=== PATIENT | female | born 1945 ===

== ENCOUNTER 2024-09-18 07:49 | Inpatient (IN) ==
--- NOTE | 2024-09-17 09:07 | Anesthesiology Consultation ---
Date of Service September 17, 2024 Assessment & Plan (1) Encounter for pre-operative examination: - Infectious disease screening: Per assessment on 09/11/24- No known recent infectious disease contacts or current infectious disease symptoms. - Neurology visit (06/21/24): "78-year-old female with signs and symptoms consistent with a right hemispheric ischemic infarct, she has a left hemiparesis, face arm and leg, mild. Recent brain MRI reveals an ischemic infarct within the right temporal lobe. I will need to review the actual images to determine the extent of this infarct and look for evidence of other chronic ischemic injury. I have also recommended CT angiography of the head and neck, echocardiography, and mobile cardiac outpatient telemetry. Patient will start aspirin 81 mg/day for secondary stroke risk reduction, she will continue with pravastatin and continue to follow with her PCP for ongoing management of hyperlipidemia and other cardiovascular risk factors.. I would also recommend a trial of a low-dose of carbidopa levodopa to address an element of vascular parkinsonism, she has a shuffling gait, poor movement initiation. However, I do not suspect classic idiopathic Parkinson's disease at this time. 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 Head CTA 08/01/24 showed " 1.9 cm lytic focus within the inner table of the left frontal bone with associated extra-axial soft tissue density. This is pathologically indeterminate and a neoplastic process such as myeloma or metastatic disease cannot be excluded. A benign etiology is also within the differential." Neck CTA with significant Left ICA stenosis (reason for upcoming surgery). > Case (including Echo/head CTA findings) reviewed with Dr. Zaidi. Nothing further needed preoperatively from his perspective for given surgery. - Preop testing: No preop testing received at current time of review. Per email from Laura with surgeon's office, aware preop testing not obtained and request being done DOS. Order placed for surgeon-ordered DOS labs, EKG, CXR. Chart Review Chart Review: Acceptable Risk for Surgery (pending preop labs, EKG, CXR DOS) and Patient NOT seen in Pre Admission Testing History Surgery Operation Date: 09/18/24 12:00 Proposed Procedures p Left Transcarotid Artery Revascularization - Charles Peralta MD Height/Weight Height: 5 ft 3 in Weight: 72.575 kg Allergies Allergy/AdvReac Type Severity Reaction Status Date / Time No Known Drug Allergies Allergy Unknown Verified 09/11/24 09:42 Medications Home Medications Medication Instructions Recorded Confirmed Last Taken pravastatin 10 mg tablet 10 mg PO QPM 06/13/24 09/11/24 Unknown carbidopa 25 mg-levodopa 100 mg 0.5 tab PO TID #90 tabs 06/21/24 09/11/24 Unknown tablet aspirin 81 mg tablet,delayed 81 mg PO QAM 09/11/24 09/11/24 Unknown release (Adult Aspirin Regimen) cholecalciferol (vitamin D3) 50 50 mcg PO QAM 09/11/24 09/11/24 Unknown mcg (2,000 unit) capsule (Vitamin D3) clopidogrel 75 mg tablet (Plavix) 75 mg PO QAM 09/11/24 09/11/24 Unknown Past Medical History Medical History Carotid stenosis CTA neck 08/01/24: Prominent atherosclerotic plaque of the left carotid bulb results in approximately 80% stenosis of the left ICA. Severe calcified plaque within the right carotid bulb causes severe stenosis at the origin of the right external carotid artery and approximately 60% stenosis at the origin of the right ICA. Hyperlipidemia Osteoarthritis PFO (patent foramen ovale) per patient, no current issues. Echo 07/11/24: positive bubble study for interatrial shunt most consistent with PFO. Raynauds disease Stroke Per [facility] [place] neuro visit, 02/27/2024 Brain MRI "revealed a likely arachnoid g ranulation along the left frontal lobe, no enhancing mass or mass effect. There was a small area of encephalomalacia and gliosis involving the anterior right temporal lobe likely consistent with a remote injury or stroke." Unsteady gait Per [facility] neuro 06/2024 visit, added carbidopa-levadopa to address element of vascular parkinsonism ("do not suspect classic idiopathic Parkinson's disease at this time") Past Family History Family History Other No family history of adverse response to anesthesia Past Surgical History Surgical History History of colonoscopy History of dilatation and curettage S/P cholecystectomy S/P hip replacement right S/P knee replacement bilateral S/P shoulder surgery (08/2023) right shoulder replacement Status post tubal ligation Social History Smoking Status: Never smoker Do You Dip or Chew Tobacco: No Hx Alcohol Use: No Hx Substance Use: No substance use type: does not use Testing Echocardiogram Date: 07/11/24 LVEF 60-65%. No RWMA. Mild cLVH. AV sclerosis. Borderline pulmonary HTN. Est PASP 35-40mmhg. Positive bubble study for interatrial shunt most consistent with PFO. Small RA mass consistent with prominent aleisha terminalis. Other Testing Cardiac event monitor Date: 08/09/24 Time monitored: 22d 9h. Sinus rhythm. Low HR 46bpm. Avg HR 68bpm. Rare PVCs. One episode NSVT. Neck CTA Date: 08/01/24 IMPRESSION: 1. Prominent atherosclerotic plaque of the left carotid bulb results in approximately 80% stenosis of the left ICA. 2. Calcified plaque of the right carotid bulb causes approximately 60% stenosis. 3. Patent vertebral arteries. Head CTA Date: 08/01/24 IMPRESSION: 1. No acute intracranial findings. 2. No large vessel occlusion. No intracranial aneurysm. 3. Extensive atherosclerotic plaque within the bilateral cavernous carotids which results in moderate stenosis of these vessels. 4. 1.9 cm lytic focus within the inner table of the left frontal bone with associated extra-axial soft tissue density. This is pathologically indeterminate and a neoplastic process such as myeloma or metastatic disease cannot be excluded. A benign etiology is also within the differential. Correlation with prior imaging studies, if available, is recommended. Oncology consultation might also be considered.
--- NOTE | 2024-09-17 13:15 | History & Physical Report ---
Date of Service September 17, 2024 History of Present Illness Primary Care Provider: Wilberto Grewal PA-C Name: SUSANNAH MACK Patient Number: [id number] : 1945 Date of Service: 09/09/2024 Chief Complaint: _New patient consultation for carotid stenosis HPI: _Ms. Mack is an elderly female who presents to Dr. Peralta's vascular surgery clinic today as new patient in consultation for carotid stenosis. Patient states that she underwent a right shoulder surgery in August 2023, and feels that she is been getting weaker and weaker since that time. Due to concerns for a possible stroke, she underwent evaluation a few months later and eventually saw a neurologist locally who was concerned that she may have had a right hemispheric CVA in the remote past. He sent her for a CTA of the neck which was done at [facility] and this demonstrated carotid stenosis. Patient states that she had been feeling like her left arm and leg were more weak than her right, but she is now using a rolling walker for ambulation, and just his generally weaker than she used to be. She denies any symptoms of amaurosis, definitive sudden onset unilateral weakness or tingling, facial droop, sudden onset confusion, difficulty speaking or swallowing. Additionally she denies headache, fever, chest pain, shortness of breath, bone pain, nausea, vomiting, rest pain, claudication, nonhealing wounds or ulcers. She does admit some bilateral lower extremity edema which is chronic. CTA of the neck performed at [facility] in July 2024 demonstrates a 80 to 90% stenosis of the left ICA and about 60% stenosis of the right. Current Home Meds: (Last Updated 09/09 15:47) aspirin (aspirin 81 mg oral delayed release tablet) 81 mg PO Daily carbidopa-levodopa (carbidopa-levodopa 25 mg-100 mg oral tablet) TAKE 1/2 (ONE-HALF) TABLET BY MOUTH THREE TIMES DAILY cholecalciferol (D3 50 mcg (2000 intl units) oral capsule) clopidogrel (Plavix 75 mg oral tablet) 75 mg PO Daily pravastatin (pravastatin 10 mg oral tablet) TAKE 1 TABLET BY MOUTH ONCE DAILY Allergies and Sensitivities: NKA Past Medical History: Problems: Bilateral carotid artery stenosis CVA Hypercholesterolemia Raynaud's disease Surgical history: Positive for right shoulder repair, cholecystectomy, bilateral total knee arthroplasty, left hip arthroplasty. Social history: Patient does not smoke or drink alcohol. She does not use illicit drugs. She is lives with her who is her primary ball points inspector. Family history: Essentially negative OBJECTIVE Vitals: Last Updated 09/09/24 14:46 Date Temp BP Location Pulse RR SpO2 Pain 09/09/24 124/60 Right Arm 09/09/24 122/64 Left Arm 70 18 99 0 Vital Signs are the last 3 documented. No Orthostatic Data Available Height and Weight: Last Updated 09/09/24 14:44 Date BMI Wt(kg) Wt(lb) Method Ht(cm) (ft-in) Method 09/09/24 72.4 159 Standing Scale Heights and Weights are the last 3 documented. Physical Exam Constitutional: In general patient is a mildly chronic ill-appearing elderly female in no distress. She is alert and oriented without any focal deficits other than 4-5 strength on the left versus 5 out of 5 on the right, although does move and process rather slowly. Her carotids not demonstrate a bruit. Her heart is regular, lungs are decreased but clear. Abdomen soft nontender with erected bowel sounds in 4 quadrants. Brachial radial pulses are +3. Femoral pulse are +3. Lower extremities pulses are +2 DP +1 PT. She has brisk cap refill and no sign of distal ischemia. She does have +2 pitting edema of the lower legs. ASSESSMENT: _ PLAN: _ 1 ) _carotid stenosis Patient does have a severe left ICA stenosis of 80 to 90%, from which she is asymptomatic. Her right hemispheric CVA is in the remote past, and only has 60% stenosis of the right ICA. Due to the severity of the left ICA stenosis, and her significantly increased risk of CVA there, we recommend that she undergo surgical intervention. Carotid endarterectomy versus TCAR were discussed at length with the patient and her present. Patient expresses a desire to undergo left TCAR. The procedure benefits and alternatives were discussed with the patient by myself. The risks of the surgery including but not limited to bleeding, infection, CVA, heart attack, blood clots, nerve damage, , were discussed at with the patient by myself at Dr. Peralta's request. Patient expr essed understanding and agreement to proceed. Patient is currently taking 81 mg aspirin and statin medication which she has been taking chronically. We will add clopidogrel for DAPT required for stent placement. Patient and her were advised to call if they have any further questions or concerns. Otherwise this per procedure will occur in the next few weeks at the patient's convenience. Thank you for letting us participate in the care of this patient. I have personally [id number]__ minutes performing [id number] and [id number] activities on this date of service.Time does not include separately reported services. Activities Include: _x_ review of the medical record x__ obtaining a history _x_ physical exam/evaluation __ review labs _x_ review radiology reports _x_ counseling/educating patient/family/caregiver __ discussion/referral to other healthcare professional _x_ documenting care in the medical record __ independent interpretation of results _x_ communication of results to patient/family/caregiver _x_ coordination of care Signature Line Electronic Signature on File CC: Junior Reyes MD [facility] [address] [facility] [address] * CC: CALL[facility] [address] [facility] [address] * Electronically Reviewed/Signed by: Berenice Lake PA-C Author Signature Dt/Tm:09/09/2024 04:[address] [facility] [place] [place] [address] LM Result Type: HVI Outpt Note Date of Service: September 09, 2024 16:40 EDT Authorization Status: Final Author or Import Date: RAMIRO Lake Lynn on September 09, 2024 16:55 EDT Verified By: RAMIRO Lake Lynn on September 09, 2024 16:55 EDT Encounter info: [id number], [facility], Clinic, 09/09/2024 - 09/09/2024 Allergies Allergy/AdvReac Type Severity Reaction Status Date / Time No Known Drug Allergies Allergy Unknown Verified 09/11/24 09:42 Home Medications Medication Instructions Recorded Confirmed Type pravastatin 10 mg tablet 10 mg PO QPM 06/13/24 09/11/24 History carbidopa 25 mg-levodopa 100 mg 0.5 tab PO TID #90 tabs 06/21/24 09/11/24 Rx tablet aspirin 81 mg tablet,delayed 81 mg PO QAM 09/11/24 09/11/24 History release (Adult Aspirin Regimen) cholecalciferol (vitamin D3) 50 50 mcg PO QAM 09/11/24 09/11/24 History mcg (2,000 unit) capsule (Vitamin D3) clopidogrel 75 mg tablet (Plavix) 75 mg PO QAM 09/11/24 09/11/24 History Past Med/Surg History Problem List Encounter for pre-operative examination Carotid stenosis, bilateral PFO (patent foramen ovale) Vitamin D deficiency Hyperlipidemia Raynauds disease Medical History Carotid stenosis CTA neck 08/01/24: Prominent atherosclerotic plaque of the left carotid bulb results in approximately 80% stenosis of the left ICA. Severe calcified plaque within the right carotid bulb causes severe stenosis at the origin of the right external carotid artery and approximately 60% stenosis at the origin of the right ICA. Hyperlipidemia Osteoarthritis PFO (patent foramen ovale) per patient, no current issues. Echo 07/11/24: positive bubble study for interatrial shunt most consistent with PFO. Raynauds disease Stroke Per [facility] neuro visit, 02/27/2024 Brain MRI "revealed a likely arachnoid granulation along the left frontal lobe, no enhancing mass or mass effect. There was a small area of encephalomalacia and gliosis involving the anterior right temporal lobe likely consistent with a remote injury or stroke." Unsteady gait Per [facility] neuro 06/2024 visit, added carbidopa-levadopa to address element of vascular parkinsonism ("do not suspect classic idiopathic Parkinson's disease at this time") Surgical History History of colonoscopy History of dilatation and curettage S/P cholecystectomy S/P hip replacement right S/P knee replacement bilateral S/P shoulder surgery (08/2023) right shoulder replacement Status post tubal ligation Family History Other No family history of adverse response to anesthesia Social History Smoking Status: Never smoker Second Hand Exposure: No; Do You Dip or Chew Tobacco: No; Tobacco Cessation Education Requested by Patient: No Hx Alcohol Use: No Hx Substance Use: No Preferred Language: Ukrainian Communication Ability: Effective Trombone Slide Assembler Required: No Beliefs That Will Affect Care: None Current Living Situation: Spouse Other Information That Helps Us Care for You: No Feels Safe at Home: Yes Safety Concerns: Feels Safe At This Time Assistive Devices: Denture - Upper, Denture - Lower, Glasses, Lift Chair, Raised Toilet Seat and Walker
[~2024-09-18 07:49] MED LIST: DEXAMETHASONE SOD INJ 4 MG/ML VIAL ONE; GLYCOPYRROLATE 0.2 MG/ML VIAL ONE; LIDOCAINE 2% 2 ML VIAL/AMP(20MG/ML) INFIL ONE; ONDANSETRON INJ 2 MG/ML 2 ML VIAL ONE; PHENYLEPHRINE HCL 10 MG/ML VIAL ONE; PROPOFOL IV EMULSION 10 MG/ML 20 ML VIAL IV ONE; ROCURONIUM BROMIDE 10 MG/ML 5 ML VIAL IV ONE; WATER, STERILE FOR INJ 10 ML VIAL ONE; fentaNYL citrate PF 100 MCG/2 ML VIAL ONE
[2024-09-18 08:17] LABS: Basophils # (auto) 0.02 K/uL (0.00-0.20); Basophils % (auto) 0.6 %; Eosinophils # (auto) 0.02 K/uL (0.00-0.50); Eosinophils % (auto) 0.6 %; Hematocrit (blood only) 37.3 % (37.0-47.0); Hemoglobin 12.2 g/dl (12.0-16.0); Lymphocytes % (auto) 28.1 %; Mean Corpuscular Hemoglobin 28.6 pg (25.0-34.0); Mean Corpuscular Hgb Conc 32.7 g/dL (32.0-36.0); Mean Corpuscular Volume 87.4 fL (80.0-100.0); Mean Platelet Volume 9.7 fL (9.4-12.4); Monocytes # (auto) 0.35 K/uL (0.11-0.59); Monocytes % (auto) 9.8 %; Neutrophils # (auto) 2.17 K/uL (1.40-6.50); Neutrophils % (auto) 60.9 %; Platelet Count 192 K/uL (130-400); RDW Coefficient of Variation 14.2 % (11.5-14.5); RDW Standard Deviation 45.6 fL (36.4-46.3); Red Blood Count 4.27 M/uL (4.20-5.40); White Blood Count 3.56 K/ul (4.8-10.8)
[2024-09-18] MEDS: SODIUM CHLORIDE 0.9% 1,000 ML IV SCH (08:22)
--- NOTE | 2024-09-18 08:29 | XRay Report ---
XR chest 2V PA/lateral CLINICAL HISTORY: SDS, preop COMPARISON STUDY: None FINDINGS: 2 views of the chest demonstrate no acute cardiopulmonary process. There is no airspace opa city or pleural effusion. There is no pneumothorax. The heart and pulmonary vascularity are unremarka ble. There is a vague, asymmetric density in the left pulmonary apex compared with the right. However, a r ecent neck CTA demonstrated no evidence of a mass in the left pulmonary apex. 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 IMPRESSION: No acute cardiopulmonary process identified. ACT 112: Negative or not required by law. Electronically signed by: Linda Cedeño M.D. 09/18/2024 8:27 AM
[2024-09-18 08:31] LABS: BUN Creatinine Ratio 21.9 (10-20); Calcium 9.8 mg/dl (8.6-10.3); Creatinine Clr Calc Pharmacy 56.8 ml/min
[2024-09-18 08:44] LABS: Partial Thromboplastin Time 27 Seconds (21-31); Prothrombin Time 10.9 Seconds (9.0-12.0)
[2024-09-18] MEDS ORDERED: PROMETHAZINE HCL 6.25 MG in SODIUM CHLORIDE 0.9% 50 ML IV PRN (09:06)
[2024-09-18] MEDS ORDERED: ePHEDrine sulfate 50 MG/ML AMP IV PRN (09:06)
[2024-09-18] MEDS ORDERED: LABETALOL HCL IV 5 MG/ML 20ML IV PRN (09:06)
[2024-09-18] MEDS ORDERED: NALOXONE HCL 0.4 MG/1 ML VIAL/CARP IV PRN (09:06)
[2024-09-18] MEDS ORDERED: FLUMAZENIL 0.1 MG/1 ML 10 ML VIAL IV PRN (09:06)
[2024-09-18] MEDS ORDERED: ONDANSETRON INJ 2 MG/ML 2 ML VIAL IV PRN (09:06)
[2024-09-18] MEDS ORDERED: ATROPINE SULFATE 0.1 MG/ML 10ML SYR IV PRN (09:06)
[2024-09-18] MEDS ORDERED: fentaNYL citrate PF 100 MCG/2 ML VIAL IV PRN (09:06)
--- NOTE | 2024-09-18 09:54 | Electrocardiogram Report ---
Test Reason : Blood Pressure : */* mmHG Vent. Rate : 74 BPM Atrial Rate : 74 BPM P-R Int : 174 ms QRS Dur : 96 ms QT Int : 414 ms P-R-T Axes : 54 24 31 degrees QTcB Int : 459 ms Normal sinus rhythm Normal ECG No previous ECGs available Confirmed by Dante Hobson ([id number]) on 09/18/2024 9:54:29 AM Referred By: Charles Peralta Confirmed By: Dante Hobson
--- NOTE | 2024-09-18 10:08 | History & Physical Bridge Note ---
Date of Service September 18, 2024 History & Physical Bridge Note I have examined the patient, reviewed the History & Physical and in the interval since the performance of the History & Physical I have noted the following changes of clinical significance: no changes noted
[2024-09-18] MEDS: ceFAZolin 2000MG 2,000 MG/15 ML SYR IV SCH ×2 (10:31→20:38)
[2024-09-18] MEDS ORDERED: HEPARIN SOD (PORCINE) 1000 UNIT/ML ONE ×2 (11:04→11:45)
[2024-09-18] MEDS ORDERED: SUGAMMADEX SODIUM 200 MG/2 ML VIAL IV ONE (11:08)
[2024-09-18] MEDS ORDERED: PROTAMINE SULFATE 10 MG/ML 5 ML VIAL IV ONE (11:09)
[2024-09-18] MEDS ORDERED: PROPOFOL IV EMULSION 10 MG/ML 20 ML VIAL IV ONE (11:16)
[2024-09-18] MEDS ORDERED: ROCURONIUM BROMIDE 10 MG/ML 5 ML VIAL IV ONE (11:18)
[2024-09-18] MEDS ORDERED: ePHEDrine sulfate 50 MG/5 ML SYR ONE ×2 (11:30→12:07)
[2024-09-18] MEDS ORDERED: NITROGLYCERIN/D5W 100 MCG/ML BTL ONE (12:13)
[2024-09-18] MEDS: VISIPAQUE IV ONE (12:22)
[2024-09-18] MEDS ORDERED: ESMOLOL HCL INJ 10 MG/ML 10ML VIAL IV ONE (12:23)
[2024-09-18] MEDS: SURGICEL ABSORB HEMOSTAT 2IN X 14IN TOP ONE (12:25)
[2024-09-18] MEDS: GELATIN SPONGE SZ 100 ONE (12:42)
[2024-09-18] MEDS: THROMBIN FOR SOLN 20000 UNIT KIT ONE (12:42)
--- NOTE | 2024-09-18 12:43 | Post Operative Brief Note ---
Immediate Post Op Note Date of Surgery September 18, 2024 Pre & Post Diagnosis Operation Date: 09/18/24 09:50 Pre-Op Diagnosis: Left Internal Carotid Artery Stenosis Post-Op Diagnosis: Left Internal Carotid Artery Stenosis I identified the patient and participated in the time-out.: Yes Procedure Operation Date: 09/18/24 09:50 Actual Procedures p Left Transcarotid Artery Revascularization(Left), Ultrasound of right common femoral vein- Charles Peralta MD Surgeon Charles Peralta MD Associate Sales Manager MD Jose Estimated Blood Loss 20 Findings Consistent with Post-Op Diagnosis Anesthesia Type General Complications none Disposition Accompanied Patient To Recovery: No Disposition: Recovery Room
--- NOTE | 2024-09-18 12:46 | Operative Report ---
Post Operative Report Pre & Post Diagnosis Operation Date: 09/18/24 09:50 Pre-Op Diagnosis: Left Internal Carotid Artery Stenosis Post-Op Diagnosis: Left Internal Carotid Artery Stenosis I identified the patient and participated in the time-out.: Yes Procedure Operation Date: 09/18/24 09:50 Actual Procedures p Left Transcarotid Artery Revascularization with Ultrasound Right Common Femoral Vein(Left) - Charles Peralta MD Surgeon Charles Peralta MD Ladle Cleaner Wilton Solis MD; Berenice Lake PA-C Estimated Blood Loss 20 Findings Consistent with Post-Op Diagnosis Significant stenosis of the left carotid artery improved following stent deployment. Spasm of ICA following stent deployment significantly improved after administration of nitroglycerin. Good stent placement, with patency, no throm bus, dissection, or residual calcification on completion imaging. Specimens None Anesthesia Type General Complications None Disposition Accompanied Patient To Recovery: Yes Indications Amara Mack is a 79 year old female with carotid artery stenosis of the left of greater than 70%. She is asymptomatic. Patient consented and prepared for TCAR for her asymptomatic carotid artery stenosis on the left of > 70% Description of Procedure The patient was taken to the operating room and placed in supine position. After general anesthesia was accomplished the left-side of the neck and bilateral groins were prepped and draped in a sterile manner. A transverse 4cm incision was made on the left neck over the sternal and clavicular heads of the sternocleidomastoid muscle and below the omohyoid. Subcutaneous tissue and platysma were divided using electrocautery. Dissection using Metzenbaum scissors proceeded and the carotid sheath was identified. It was divided longitudinally. The internal jugular was retracted medially. The common carotid artery was identified with the Vagus nerve anterior. It was retracted laterally The common carotid artery was mobilized with Metzenbaum scissors and umbilical tape was placed around the artery. Once sufficient length, about 2cm of the common carotid were mobilized, a 6-0 Proline suture was used to place a U-Stitch in the anterior surface of the right common carotid artery. Attention was turned to the right common femoral vein which was then accessed under ultrasound guidance using a micropuncture needle. This was exchanged for the Venous Return Sheath over the provided 0.035'' wire. Blood was aspirated from the flow line followed by flushing of the venous sheath with heparinized saline. The sheath was sutured in place to the patient's skin. A total of [id number] of heparin was then to obtain an ACT > 250. A micropuncture needle was used to access the common carotid artery in the center of the U- stitch. The micropuncture wire was then advanced 4cm into the common carotid artery and the micropuncture needle was removed. The micropuncture sheath was advanced 2-3cm into the common carotid artery and the wire and dilator were removed. A carotid angiogram was performed and the bifurcation of the carotid artery identified. Next a 0.035'' J guidewire was was inserted under fl uoroscopic guidance and placed just proximal to the right internal carotid artery lesion without engaging the lesion. The micropuncture sheath was exchanged over the guidewire and the Transcarotid Arterial Sheath was advanced to the 2.5cm marker in correct coaxial orientation and the J wire and dilator were removed. The Sheath was sutured to the patient and then flushed with heparinized saline. No air bubbles visualized during flushing The flow controller was connected to the Transcarotid arterial sheath. Arterial blood was allowed to passively fill the device completely to which it was then connected to the Venous return sheath. The flow controller was set to high. The common carotid artery proximal to the access point was then clamped with an angled DeBakey and flow reversal was confirmed. A left carotid angiogram was then performed and the left internal carotid artery lesion was marked. HR and systolic blood pressures were adequate with HR of about 80 and blood pressure between 140 and 160 systolic. The carotid was clamped. The lesion was then crossed using a 0.014'' guidewire. The lesion was then pre-dilated using a 5.5mm x 25mm balloon. This balloon was then exchanged and primary stenting was performed with the Transcarotid stent, appropriately sized (9-7 x 30mm). Post dilation was performed with a 6x25mm balloon to 10 ATMs. 2min washout period was completed. Completion carotid angiography demonstrated patent stent with <50% residual stenosis. There was however significant spasm of the distal ICA. The wire was removed. 250mcg Nitroglycerin were administered intraarterial. Completion angiography demonstrated patency of the ICA with improved spasm, no thrombus or dissection. Antegrade flow was restored following release of the common carotid artery clamp. The arterial sheath was removed and U-Stitch tied. The femoral venous sheath was removed and pressure held for 5 min with adequate hemostasis. Adequate hemostasis was seen of the carotid artery. The wound was inspected and adequate hemostasis was obtained. It was then closed with a running 3-0 Vicryl suture for the platysmal layer and a 4-0 subcuticular Vicryl suture for the skin edges. Dermabond was used for dressing. Patient awoke from anesthesia without difficulties. Was neurovascularly intact, moving all extremities and following commands at case completion. The patient left the operating room in satisfactory condition and tolerated the procedure well A total of 28mGy, 3.6 min of fluoroscopy time, and 21cc of contrast were used during the procedure. Dr. Peralta was present and scrubbed for the entire procedure. I attest to the content of the Intraoperative Record and any orders documented therein. Any exceptions are noted below. Supervising Physician Co-Signing Physician Notes Charles Peralta MD
[2024-09-18] MEDS: BUPIVACAINE/EPINEPHRINE 0.5% MPF 1:200,000 30 ML VIAL ONE (12:48)
[2024-09-18] MEDS: ceFAZolin 330 MG/ML 1 GM VIAL ONE (12:48)
--- NOTE | 2024-09-18 13:56 | Anesthesiology Progress Note ---
Date of Service September 18, 2024 Anesthesia Post Procedure Vital Signs Vital Signs: Temp Pulse Pulse Resp BP BP BP 09/18/24 13:40 36.6 C 96 H 14 126/50 L 139/59 L 09/18/24 13:30 99 H 15 131/59 L 09/18/24 13:20 100 H 15 128/70 09/18/24 13:10 103 H 17 136/55 L 09/18/24 13:03 36.2 C L 103 H 12 147/65 H 09/18/24 07:55 36.5 C 76 20 155/71 H 154/78 H Pulse Ox O2 Del Method 09/18/24 13:40 96 Room Air 09/18/24 13:30 97 Room Air 09/18/24 13:20 97 Room Air 09/18/24 13:10 96 Room Air 09/18/24 13:03 96 Room Air 09/18/24 07:55 100 Room Air Transfer of Care Handoff Completed per policy Notes Mental Status: alert / awake / arousable Patient Amnestic to Procedure: Yes Nausea / Vomiting: adequately controlled Pain: adequately controlled Airway Patency, RR, SpO2: stable & adequate BP & HR: stable & adequate Hydration State: stable & adequate Anesthetic Complications: no major complications apparent
[2024-09-18] MEDS ORDERED: PHENYLEPHRINE/NSS 25 MG/250 ML BAG IV PRN (14:31)
[2024-09-18] MEDS ORDERED: STAT IV Infusion **Titration per Protocol STA (14:31)
--- OUTSIDE RECORDS SUMMARY | 2024-09-18 15:08 | External Medical Summary | Continuity of Care Document ---
Author Name Unknown Organization [facility] [address] Address [address] [place], [place] [id number] Care Team Providers Care Product Marketing Intern Name Role Phone Wilberto Grewal Primary Care Physician [phone] Encounter [facility] [id number] Date(s): 09/13/24 - 09/13/24 [facility] [address] [facility] [address] [place], [place] [phone] Encounter Diagnosis Occlusion and stenosis of bilateral carotid arteries(Final) - Discharge Disposition: Home or Self Care Attending Physician: RAMIRO [place] Referring Physician: RAMIRO [place] Encounter Type: Clinic Allergies, Adverse Reactions, Alerts No Known Allergies Medications aspirin 81 mg oral delayed release tablet Start: 09/09/24 8:38:00 AM EDT, 1 tab, PO, Daily Start Date: 09/09/24 Status: Ordered Repeat number: 1 carbidopa-levodopa 25 mg-100 mg oral tablet TAKE 1/2 (ONE-HALF) TABLET BY MOUTH THREE TIMES DAILY Start Date: 09/09/24 Status: Ordered Repeat number: 1 D3 50 mcg (2000 intl units) oral capsule Start: 09/09/24 2:46:00 PM EDT Start Date: 09/09/24 Status: Ordered Repeat number: 1 Plavix 75 mg oral tablet Start: 09/09/24 3:42:00 PM EDT, 1 tab, PO, Daily, Disp# 30 tab, Refills: 1, Pharmacy: [id number] Start Date: 09/09/24 Status: Ordered Quantity: 30.0 Unit: tab Repeat number: 2 Indication: Occlusion and stenosis of bilateral carotid arteries pravastatin 10 mg oral tablet TAKE 1 TABLET BY MOUTH ONCE DAILY Start Date: 09/09/24 Status: Ordered Repeat number: 1 Problem List Condition Confirmation Course Effective Dates Status Health St atus Informant Bilateral carotid artery stenosis Confirmed Active Results Laboratory List Name Date Platelet Function (P2Y12 Receptor) (PLT FUNCTION P2Y12) 09/13/24 Most recent to oldest [Reference Range]: 1 P2Y12 Platelet Function [194-418 PRU] 22 4 PRU 1 (09/13/24 12:16 PM) 1Result Comment: PRU reference range is 194-418 (healthy adults, no drug treatment). Post Drug Results: Lower PRU levels are expected following treatment with antiplatelet drugs. Post-treatment values are usually below the stated reference range above. The post-drug PRU values reported in the Ver[employer]NOW P2Y12 package insert are 18-435. This broader range reflects the variability in drug response and is consistent with significant numbers of patients with decreased sensitivity to P2Y12 receptor antagonists (prasugrel or clopidogrel). Clinical studies suggest an on-treatment PRU>230 indicates less than optimal response to therapy, and PRU<208 at 12-24 hours after percutaneous intervention or during follow-up is associated with a lower risk of cardiovascular events (1). (1).Standard-vs high-dose clopidogrel based on platelet function testing after percutaneouscoronary intervention: the GRAVITAS randomized trial. Tera, et al. JAMES. 2010September 01; 305(11): 5081-5546. doi: 10.1001/james.2011.290 Social History Social History Type Response Smoking Status Never smoked cigaret heath Sex Sex Representation Female (finding) Patient Care team information Care Team Personnel Name: RAMIRO Grewal, Wilberto Pacheco Position: Referring Member Role: Primary Care Provider Address: [facility] [address] Telecom: [phone] Care Team Related Persons Name: KELLEY GREGORY Insurance Providers Guarantor name: DIPTI Health Plan Information #: 1 Payer: [employer] Member Number: [id number] Policy Number: NA Group Number: [id number] Health Plan Information #: 2 Payer: AET[employer] Member Number: [id number] Policy Number: NA Group Number: NA
--- OUTSIDE RECORDS SUMMARY | 2024-09-18 15:08 | External Medical Summary | Continuity of Care Document ---
Author Name Unknown Organization [facility] [address] [facility] Address [address] [place], [place] [id number] Care Team Providers Care Professor Of Oceanography Name Role Phone Wilberto Grewal Primary Care Physician [phone] [id number] Date(s): 09/09/24 - 09/09/24 [facility] [address], [address] [place] [address] [phone] Encounter Diagnosis Bilateral carotid artery stenosis(Discharge Diagnosis) - 09/09/24 Discharge Disposition: Home or Self Care Attending Physician: RAMIRO [place] Referring Physician: RAMIRO Grewal Thomas Brian Encounter Type: Clinic Allergies, Adverse Reactions, Alerts No Known Allergies Assessment and Plan Extracted from: Title:Clinical Document Author:RAMIRO [place] Date:09/09/24 [facility] OUTPATIENT NOTE Name: SUSANNAH MACK Patient Number: [id number] : 1945 Date of Service: 09/09/2024 Chief Complaint: _New patient consultation for carotid stenosis HPI: _Ms. Mack is an elderly female who presents to Dr. Peralta's vascular surgery clinic today as new patient in consultation for carotid stenosis. Patient states that she underwent a right shoulder surgery in August 2023, and feels that she is been getting weaker and weaker since that time. Due to concerns for a possible stroke, she underwent evaluation a few months later and eventually saw a neurologist locally who was concerned that she may have had a right hemispheric CVA in the remote past. He sent her for a CTA of the neck which was done at [facility] and this demonstrated carotid stenosis. Patient states that she had been feeling like her left arm and leg were more weak than her right, but she is now using a rolling walker for ambulation, and just his generally weaker than she used to be. She denies any symptoms of amaurosis, definitive sudden onset unilateral weakness or tingling, facial droop, sudden onset confusion, difficulty speaking or swallowing. Additionally she denies headache, fever, chest pain, shortness of breath, bone pain, nausea, vomiting, rest pain, claudication, nonhealing wounds or ulcers. She does admit some bilateral lower extremity edema which is chronic. CTA of the neck performed at [facility] in July 2024 demonstrates a 80 to 90% stenosis of the left ICA and about 60% stenosis of the right. Current Home Meds: (Last Updated 09/09 15:47) aspirin (aspirin 81 mg oral delayed release tablet) 81 mg PO Daily carbidopa-levodopa (carbidopa-levodopa 25 mg-100 mg oral tablet) TAKE 1/2 (ONE- HALF) TABLET BY MOUTH THREE TIMES DAILY cholecalciferol (D3 50 mcg (2000 intl units) oral capsule) clopidogrel (Plavix 75 mg oral tablet) 75 mg PO Daily pravastatin (pravastatin 10 mg oral tablet) TAKE 1 TABLET BY MOUTH ONCE DAILY Allergies and Sensitivities: NKA Past Medical History: Problems: Bilateral carotid artery stenosis CVA Hypercholesterolemia Raynaud's disease Surgical history: Positive for right shoulder repair, cholecystectomy, bilateral total knee arthroplasty, left hip arthroplasty. Social history: Patient does not smoke or drink alcohol. She does not use illicit drugs. She is lives with her who is her primary commercial energy rater. Family history: Essentially negative OBJECTIVE Vitals: Last Updated 09/09/24 14:46 Date Temp BP Location Pulse RR SpO2 Pain 09/09/24 124/60 Right Arm 09/09/24 122/64 Left Arm 70 18 99 0 Vital Signs are the last 3 documented. No Orthostatic Data Available Height and Weight: Last Updated 09/09/24 14:44 Date BMI Wt(kg) Wt(lb) Method Ht(cm) (ft-in) Method 09/09/24 72.4 159 Standing Scale Heights and Weights are the last 3 documented. Physical Exam Constitutional: In general patient is a mildly chronic ill-appearing elderly female in no distress. She is alert and oriented without any focal deficits other than 4-5 strength on the left versus 5 out of 5 on the right, although does move and process rather slowly. Her carotids not demonstrate a bruit. Her heart is regular, lungs are decreased but clear. Abdomen soft nontender with erected bowel sounds in 4 quadrants. Brachial radial pulses are +3. Femoral pulse are +3. Lower extremities pulses are +2 DP +1 PT. She has brisk cap refill and no sign of distal ischemia. She does have +2 pitting edema of the lower legs. ASSESSMENT: _ PLAN: _ 1 ) _carotid stenosis Patient does have a severe left ICA stenosis of 80 to 90%, from which she is asymptomatic. Her right hemispheric CVA is in the remote past, and only has 60% stenosis of the right ICA. Due to the severity of the left ICA stenosis, and her significantly increased risk of CVA there, we recommend that she undergo surgical intervention. Carotid endarterectomy versus TCAR were discussed at length with the patient and her present. Patient expresses a desire to undergo left TCAR. The procedure benefits and alternatives were discussed with the patient by myself. The risks of the surgery including but not limited to bleeding, infection, CVA, heart attack, blood clots, nerve damage, , were discussed at with the patient by myself at Dr. Peralta's request. Patient expressed understanding and agreement to proceed. Patient is currently taking 81 mg aspirin and statin medication which she has been taking chronically. We will add clopidogrel for DAPT required for stent placement. Patient and her were advised to call if they have any further questions or concerns. Otherwise this per procedure will occur in the next few weeks at the patient's convenience. Thank you for letting us participate in the care of this patient. I have personally [id number]__ minutes performing [id number] and jyx-djda-iz-face activities on this date of service.Time does not include separately reported services. Activities Include: _x_ review of the medical record x__ obtaining a history _x_ physical exam/evaluation __ review labs _x_ review radiology reports _x_ counseling/educating patient/family/caregiver __ discussion/referral to other healthcare professional _x_ documenting care in the medical record __ independent interpretation of results _x_ communication of results to patient/family/caregiver _x_ coordination of care Medications aspirin 81 mg oral delayed release [...] Daily, Disp# 30 tab, Refills: 1, Pharmacy: [id number] Start Date: 09/09/24 Status: Ordered Quantity: 30.0 Unit: tab Repeat number: 2 Indication: Occlusion and stenosis of bilateral carotid arteries pravastatin 10 mg oral tablet TAKE 1 TABLET BY MOUTH ONCE DAILY Start Date: 09/09/24 Status: Ordered Repeat number: 1 Mental Status 09/09/24 Barriers to Learning one year None evide nt Mandatory Health Literacy Documentation Yes Health Literacy Communication Barriers N ever Primary Language Kyrgyz Problem List Condition Confirmation Course Effective Dates Status Health St atus Informant Bilateral carotid artery stenosis Confirmed Active Diagnosis Diagnosis Type Effective Dates Health Status Cl inical Service Informant Bilateral carotid artery stenosis Discharge Diagnosis 09/09/24 Vital Signs Most recent to oldest [Reference Range]: 1 2 Patient Weight 72.4 kg (09/09/24 2:44 PM) Heart Rate 70 bpm (09/09/24 2:44 PM) Respiratory Rate 18 br/min (09/09/24 2:44 PM) Blood Pressure 124/60mmHg (09/09/24 2:46 PM) 122/64mmHg (09/09/24 2:44 PM) Cuff Pulse Pressure 58 mmHg (09/09/24 2:44 PM) BP Location # 1 Right Arm (09/09/24 2:46 PM) Left Arm (09/09/24 2:44 PM) Social History Social History Type Response Smoking Status Never smoked cigaret heath Sex Sex Representation Female (finding) [facility] Outpt Note * RAMIRO [place]: PERFORM Event Display: [facility] Outpt Note Authored Date: [id number] [facility] OUTPATIENT NOTE Name: SUSANNAH MACK Patient Number: [id number] : 1945 Date of Service: 09/09/2024 Chief Complaint: _New patient consultation for carotid stenosis HPI: _Ms. Mack is an elderly female who presents to Dr. Peralta's vascular surgery clinic today as new patient in consultation for carotid stenosis. Patient states that she underwent a right shouldersurgery in August 2023, and feels that she is been getting weaker and weaker since that time. Due toconcerns for a possible stroke, she underwent evaluation a few months later and eventually saw a neurologist locally who was concerned that she may have had a right hemispheric CVA in the remote past. He sent her for a CTA of the neck which was done at [facility] and this demonstrated carotid stenosis. Patient states that she had been feeling like her left arm and leg were more weak than her right, but she is now using a rolling walker for ambulation, and just his generally weaker than she used to be. She denies any symptoms of amaurosis, definitive sudden onset unilateral weakness or tingling, facial droop, sudden onset confusion, difficulty speaking or swallowing. Additio jacey she denies headache, fever, chest pain, shortness of breath, bone pain, nausea, vomiting, rest pain, claudication, nonhealing wounds or ulcers. She does admit some bilateral lower extremity edema which is chronic. CTA of the neck performed at [facility] in July 2024 demonstrates a 80 to 90%stenosis of the left ICA and about 60% stenosis of the right. Current Home Meds: (Last Updated 09/09 15:47) aspirin (aspirin 81 mg oral delayed release tablet) 81 mg PO Daily carbidopa-levodopa (carbidopa-levodopa 25 mg-100 mg oral tablet) TAKE 1/2 (ONE- HALF) TABLET BY MOUTH THREE TIMES DAILY cholecalciferol (D3 50 mcg (2000 intl units) oral capsule) clopidogrel (Plavix 75 mg oral tablet) 75 mg PO Daily pravastatin (pravastatin 10 mg oral tablet) TAKE 1 TABLET BY MOUTH ONCE DAILY Allergies and Sensitivities: NKA Past Medical History: Problems: Bilateral carotid artery stenosis CVA Hypercholesterolemia Raynaud's disease Surgical history: Positive for right shoulder repair, cholecystectomy, bilateral total knee arthroplasty, left hip arthroplasty. Social history: Patient does not smoke or drink alcohol. She does not use illicit drugs. She is lives with her who is her primary commercial energy rater. Family history: Essentially negative OBJECTIVE Vitals: Last Updated 09/09/24 14:46 Date Temp BP Location Pulse RR SpO2 Pain 09/09/24 124/60 Right Arm 09/09/24 122/64 Left Arm 70 18 99 0 Vital Signs are the last 3 documented. No Orthostatic Data Available Height and Weight: Last Updated 09/09/24 14:44 Date BMI Wt(kg) Wt(lb) Method Ht(cm) (ft-in) Method 09/09/24 72.4 159 Standing Scale Heights and Weights are the last 3 documented. Physical Exam Constitutional: In general patient is a mildly chronic ill-appearing elderly female in no distress.She is alert and oriented without any focal deficits other than 4-5 strength on the left versus 5 out of 5 on the right, although does move and process rather slowly. Her carotids not demonstrate a bruit. Her heart is regular, lungs are decreased but clear. Abdomen soft nontender with erected bowelsounds in 4 quadrants. Brachial radial pulses are +3. Femoral pulse are +3. Lower extremities pulses are +2 DP +1 PT. She has brisk cap refill and no sign of distal ischemia. She does have +2 pittingedema of the lower legs. ASSESSMENT: _ PLAN: _ 1 ) _carotid stenosis Patient does have a severe left ICA stenosis of 80 to 90%, from which she is asymptomatic. Her right hemispheric CVA is in the remote past, and only has 60% stenosis of the right ICA. Due to the severity of the left ICA stenosis, and her significantly increased risk of CVA there, we recommend that she undergo surgical intervention. Carotid endarterectomy versus TCAR were discussed at length with the patient and her present. Patient expresses a desire to undergo left TCAR. The procedure benefits and alternatives were discussed with the patient by myself. The risks of the surgery including but not limited to bleeding, infection, CVA, heart attack, blood clots, nerve damage, , were discussed at with the patient by myself at Dr. Peralta's request. Patient expressed understanding and agreement to proceed. Patient is currently taking 81 mg aspirin and statin medication which she has been taking chronically. We will add clopidogrel for DAPT required for stent placement. Patient and her were advised to call if they have any further questions or concerns. Otherwise this per procedure will occur in the next few weeks at the patient's convenience. Thank you for letting us participate in the care of this patient. I have personally [id number]__ minutes performing rahq-tj-bzle and oyx-barc-qa-face activities on this date of service.Time does not include separately reported services. Activities Include: _x_ review of the medical record x__ obtaining a history _x_ physical exam/evaluation __ review labs _x_ review radiology reports _x_ counseling/educating patient/family/caregiver __ discussion/referral to other healthcare professional _x_ documenting care in the medical record __ independent interpretation of results _x_ communication of results to patient/family/caregiver _x_ coordination of care Electronic Signature on File CC: Junior Reyes MD [address] [facility] [address] * CC: CALLIE Pinon [facility] [address] [facility] [address] * Electronically Reviewed/Signed by: Berenice Lake PA-C Author Signature Dt/Tm:09/09/2024 04:55 PM [facility] [place] [place] [address] LM Patient Care team information Care Team Personnel Name: RAMIRO Grewal, Wilberto Pacheco Position: Referring Member Role: Primary Care Provider Address: [facility] [address] [place] [address] [place] Telecom: [phone] Care Team Related Persons Name: KELLEY MACK Insurance Providers Guarantor name: DIPTI Health Plan Information #: 1 Payer: A[employer] Member Number: [id number] Policy Number: NA Group Number: [id number] Health Plan Information #: 2 Payer: AET[employer] Member Number: [id number] Policy Number: NA Group Number: NA
[2024-09-18] MEDS: CARBIDOPA/LEVODOPA 25/100MG TAB PO SCH (15:09)
[2024-09-18] MEDS: LACTATED RINGER'S 1,000 ML IV SCH (15:09)
--- NOTE | 2024-09-18 16:50 | Critical Care Consultation ---
Date of Consultation September 18, 2024 Assessment & Plan (1) Carotid stenosis, bilateral: Postop day 0 status post left TCAR Patient hemodynamically stable. Continue dual antiplatelets per vascular surgery. Advance diet and activity per vascular surgery. 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 ICU services will continue to follow patient while patient remains under ICU status. Anticipate discharge tomorrow. History of Present Illness Reason for Consultation: Status post left TCAR Attending Physician: Charles Peralta MD History of Present Illness 79-year-old female with a past medical history of ischemic infarct within the right temporal lobe followed by neurology who was found to have 80% stenosis of the left ICA and calcified plaque of the right carotid bulb approximately 60%. She presented today for elective left TCAR which was uneventful. She is doing well in the ICU with an arterial line in place. She has some mild posterior neck pain which is chronic. She denies any dysphagia, worsening weakness, chest pain, headache, blurry vision, or nausea. Allergies Allergy/AdvReac Type Severity Reaction Status Date / Time No Known Drug Allergies Allergy Unknown Verified 09/18/24 08:20 Home Medications Medication Instructions Recorded Confirmed Type pravastatin 10 mg tablet 10 mg PO QPM 06/13/24 09/18/24 History carbidopa 25 mg-levodopa 100 mg 0.5 tab PO TID #90 tabs 06/21/24 09/18/24 Rx tablet aspirin 81 mg tablet,delayed 81 mg PO QAM 09/11/24 09/18/24 History release (Adult Aspirin Regimen) cholecalciferol (vitamin D3) 50 50 mcg PO QAM 09/11/24 09/18/24 History mcg (2,000 unit) capsule (Vitamin D3) ticagrelor 90 mg tablet (Brilinta) 90 mg PO BID 09/18/24 09/18/24 History Patient History Medical History Carotid stenosis CTA neck 08/01/24: Prominent atherosclerotic plaque of the left carotid bulb results in approximately 80% stenosis of the left ICA. Severe calcified plaque within the right carotid bulb causes severe stenosis at the origin of the right external carotid artery and approximately 60% stenosis at the origin of the right ICA. Hyperlipidemia Osteoarthritis PFO (patent foramen ovale) per patient, no current issues. Echo 07/11/24: positive bubble study for interatrial shunt most consistent with PFO. 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 ("do not suspect classic idiopathic Parkinson's disease at this time") Surgical History History of colonoscopy History of dilatation and curettage S/P cholecystectomy S/P hip replacement right S/P knee replacement bilateral S/P shoulder surgery (08/2023) right shoulder replacement Status post tubal ligation Family History Other No family history of adverse response to anesthesia Social History Smoking Status: Never smoker Second Hand Exposure: No; Do You Dip or Chew Tobacco: No; Tobacco Cessation Education Requested by Patient: No Hx Alcohol Use: No Hx Substance Use: No Preferred Language: Greek Communication Ability: Effective [employer] Required: No Beliefs That Will Affect Care: None Current Living Situation: Spouse Other Information That Helps Us Care for You: No Feels Safe at Home: Yes Safety Concerns: Feels Safe At This Time Assistive Devices: Walker Review of Systems Review of Systems: All systems reviewed & are unremarkable except as noted in HPI & below Physical Exam Physical Exam: Constitutional: Patient appears to be of their stated age. Patient is in no apparent distress. Patient is well-developed. Eyes: Pupils are equal round and reactive to light. Conjunctivae are normal. Anicteric sclera. Ears nose, mouth and throat: Mallampati class 2. Normal posterior oropharynx. Uvula is midline. Neck: Trachea is midline. Visual inspection is normal. Respiratory: Clear to auscultation bilaterally. No use of accessory muscles. No significant clubbing noted. Cardiovascular: Regular rate and rhythm. 3 out of 6 systolic flow murmur. No edema. Gastrointestinal: Normal bowel sounds, soft, nontender and nondistended. No hepatosplenomegaly noted. Musculoskeletal: No cyanosis. Patient is able to move all extremities. Strength is 5 out of 5 in the upper and lower extremities. Skin: No rashes, warm dry and intact. Neurologic: Mild hemiparesis of the left side diffusely. Mild facial droop to the left. Psychiatric: Alert and oriented x3 with a euthymic affect. Results & Data Results & Data Vital Signs (Past 12 Hours) Vital Signs Temp Pulse Pulse Resp BP BP BP 09/18/24 14:39 36.4 C L 76 20 134/48 L 127/62 09/18/24 13:55 92 H 14 133/59 L 09/18/24 13:40 36.6 C 96 H 14 126/50 L 139/59 L 09/18/24 13:30 99 H 15 131/59 L 09/18/24 13:20 100 H 15 128/70 09/18/24 13:10 103 H 17 136/55 L 09/18/24 13:03 36.2 C L 103 H 12 147/65 H 09/18/24 07:55 36.5 C 76 20 155/71 H 154/78 H Pulse Ox O2 Del Method 09/18/24 14:39 97 Room Air 09/18/24 13:55 96 Room Air 09/18/24 13:40 96 Room Air 09/18/24 13:30 97 Room Air 09/18/24 13:20 97 Room Air 09/18/24 13:10 96 Room Air 09/18/24 13:03 96 Room Air 09/18/24 07:55 100 Room Air Coding Level of Care Code 94321 INT INP/OBS CARE MIN Diagnoses Carotid stenosis, bilateral I65.23
[2024-09-18] MEDS: oxyCODONE/ACETAMINOPHEN 5mg/325mg TAB PO PRN (20:28)
[2024-09-18] MEDS: TICAGRELOR 90 MG TAB PO SCH (20:29)
[2024-09-18] MEDS: PRAVASTATIN SOD 10 MG TAB PO SCH (20:38)
[2024-09-19 05:31] VITALS: TEMP 97.7
--- NOTE | 2024-09-19 09:08 | Critical Care Progress Note ---
Date of Service September 19, 2024 Assessment & Plan (1) Carotid stenosis, bilateral: Plan: Postop day 1 status post left TCAR Patient hemodynamically stable. Continue dual antiplatelets per vascular surgery. Advance diet and activity per vascular surgery. 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 ICU services will continue to follow patient while patient remains under ICU status. Anticipate discharge today. Admission and Anticipated Discharge Date Admission Date: September 18, 2024 Subjective Sitting up in a chair today. Ate her breakfast. No significant issues. Denies shortness of breath, chest pain, nausea or vomiting. No headache or blurry vision. Review of Systems Review of Systems: All systems reviewed & are unremarkable except as noted in HPI & below Physical Exam Physical Exam: Constitutional: Patient appears to be of their stated age. Patient is in no apparent distress. Patient is well-developed. Eyes: Pupils are equal round and reactive to light. Conjunctivae are normal. Anicteric sclera. Ears nose, mouth and throat: Mallampati class 2. Normal posterior oropharynx. Uvula is midline. Neck: Trachea is midline. Visual inspection is normal. Left TCAR wound without significant bruising or bleeding. Respiratory: Clear to auscultation bilaterally. No use of accessory muscles. No significant clubbing noted. Cardiovascular: Regular rate and rhythm. 3 out of 6 systolic flow murmur. No edema. Distal pulses intact. Gastrointestinal: Normal bowel sounds, soft, nontender and nondistended. No hepatosplenomegaly noted. Musculoskeletal: No cyanosis. Patient is able to move all extremities. Strength is 5 out of 5 in the upper and lower extremities. Skin: No rashes, warm dry and intact. Neurologic: Mild hemiparesis of the left side diffusely. Mild facial droop to the left. Psychiatric: Alert and oriented x3 with a euthymic affect. Results & Data Results & Data Vital Signs (Past 12 Hours) Vital Signs Temp Pulse Resp BP Pulse Ox 09/19/24 07:00 68 17 100 09/19/24 06:54 67 16 98 09/19/24 06:42 26 H 97 09/19/24 06:30 90 22 09/19/24 06:15 71 20 95 09/19/24 06:00 75 16 96 09/19/24 06:00 115/54 L 09/19/24 06:00 115/54 L 09/19/24 06:00 115/54 L 09/19/24 06:00 115/54 L 09/19/24 06:00 115/54 L 09/19/24 06:00 115/54 L 09/19/24 06:00 115/54 L 09/19/24 06:00 115/54 L 09/19/24 06:00 115/54 L 09/19/24 06:00 115/54 L 09/19/24 06:00 115/54 L 09/19/24 06:00 115/54 L 09/19/24 06:00 115/54 L 09/19/24 06:00 115/54 L 09/19/24 06:00 115/54 L 09/19/24 06:00 115/54 L 09/19/24 06:00 115/54 L 09/19/24 06:00 115/54 L 09/19/24 06:00 115/54 L 09/19/24 05:24 77 14 97 09/19/24 05:18 65 13 98 09/19/24 05:03 70 15 98 09/19/24 05:00 123/55 L 09/19/24 05:00 123/55 L 09/19/24 05:00 123/55 L 09/19/24 05:00 123/55 L 09/19/24 05:00 123/55 L 09/19/24 05:00 123/55 L 09/19/24 05:00 123/55 L 09/19/24 05:00 123/55 L 09/19/24 05:00 123/55 L 09/19/24 05:00 123/55 L 09/19/24 05:00 123/55 L 09/19/24 04:57 65 12 97 09/19/24 04:54 66 12 96 09/19/24 04:42 77 14 96 09/19/24 04:24 68 17 97 09/19/24 04:09 65 18 87 L 09/19/24 04:00 129/56 L 09/19/24 04:00 129/56 L 09/19/24 04:00 129/56 L 09/19/24 04:00 129/56 L 09/19/24 04:00 129/56 L 09/19/24 04:00 129/56 L 09/19/24 04:00 129/56 L 09/19/24 04:00 129/56 L 09/19/24 04:00 129/56 L 09/19/24 04:00 129/56 L 09/19/24 04:00 129/56 L 09/19/24 04:00 129/56 L 09/19/24 04:00 129/56 L 09/19/24 04:00 129/56 L 09/19/24 04:00 129/56 L 09/19/24 04:00 129/56 L 09/19/24 04:00 129/56 L 09/19/24 04:00 129/56 L 09/19/24 04:00 36.5 C 09/19/24 03:24 71 15 98 09/19/24 03:21 69 15 97 09/19/24 03:18 66 12 99 09/19/24 03:03 72 16 99 09/19/24 03:00 129/62 09/19/24 03:00 129/62 09/19/24 03:00 129/62 09/19/24 03:00 129/62 09/19/24 03:00 129/62 09/19/24 03:00 129/62 09/19/24 03:00 129/62 09/19/24 03:00 129/62 09/19/24 03:00 129/62 09/19/24 01:15 70 12 97 09/19/24 01:06 65 11 L 98 09/19/24 01:00 148/51 H 09/19/24 01:00 148/51 H 09/19/24 01:00 148/51 H 09/19/24 01:00 148/51 H 09/19/24 01:00 148/51 H 09/19/24 01:00 148/51 H 09/19/24 00:57 60 9 L 96 09/19/24 00:51 61 10 L 98 09/19/24 00:45 62 13 98 09/19/24 00:00 66 09/19/24 00:00 132/62 09/19/24 00:00 132/62 09/19/24 00:00 132/62 09/19/24 00:00 132/62 09/19/24 00:00 132/62 09/19/24 00:00 132/62 09/19/24 00:00 13262 09/19/24 00:00 13262 09/19/24 00:00 13262 09/19/24 00:00 13262 09/19/24 00:00 132/62 09/19/24 00:00 13262 09/19/24 00:00 13262 09/19/24 00:00 13262 09/19/24 00:00 13262 09/19/24 00:00 13262 09/19/24 00:00 132/62 09/19/24 00:00 13262 09/19/24 00:00 36.4 C L 09/18/24 23:48 67 13 97 09/18/24 23:42 72 17 98 09/18/24 23:30 72 14 100 09/18/24 23:15 71 14 100 09/18/24 23:09 64 15 99 09/18/24 23:00 138/60 09/18/24 23:00 138/60 09/18/24 23:00 138/60 09/18/24 23:00 138/60 09/18/24 23:00 138/60 09/18/24 23:00 138/60 09/18/24 23:00 138/60 09/18/24 23:00 138/60 09/18/24 23:00 138/60 09/18/24 23:00 138/60 09/18/24 23:00 138/60 09/18/24 23:00 138/60 09/18/24 23:00 138/60 09/18/24 23:00 138/60 09/18/24 23:00 138/60 09/18/24 22:57 63 15 99 Coding Level of Care Code 94942 SUB INP/OBS CARE 07/13MIN Diagnoses Carotid stenosis, bilateral I65.23
[2024-09-19] MEDS: ASPIRIN 81 MG ECTAB PO SCH (09:28)
[2024-09-19] MEDS: CHOLECALCIFEROL 25 MCG (1000 UNITS) TAB PO SCH (09:28)
[2024-09-19 10:15] VITALS: O2SAT 98
[2024-09-19 11:21] VITALS: RESP 15
--- NOTE | 2024-09-19 12:33 | Surgery Progress Note ---
Date of Service September 19, 2024 Assessment & Plan (1) S/P vascular surgery: Plan: Patient doing extremely well. Will D\C today. Admission and Anticipated Discharge Date Admission Date: September 18, 2024 Subjective Patient complains of left sided neck discomfort with swallowing. No difficulty with swallowing food or liquids. Denies any focal deficits. Physical Exam Constitutional: WD/WN, vitals as above Neck: trachea midline Respiratory: normal respiratory effort; no respiratory distress Cardiovascular: Rate/Rhythm: regular rate and regular rhythm Skin: + incision (dry and clean) Neurologic: CN's II-XI intact bilaterally and moves all extremities Psychiatric: A+Ox3, euthymic affect Results & Data Vital Signs (Past 12 Hours) Vital Signs Temp Pulse Resp BP Pulse Ox O2 Del Method 09/19/24 11:03 67 15 09/19/24 11:00 109/42 L 09/19/24 10:54 68 18 09/19/24 10:09 66 17 98 Room Air 09/19/24 10:00 110/55 L 09/19/24 09:54 67 15 97 09/19/24 09:53 67 09/19/24 09:49 119/74 09/19/24 09:42 74 20 09/19/24 09:21 74 18 09/19/24 09:00 108/51 L 09/19/24 08:54 71 18 09/19/24 08:14 109/50 L 09/19/24 08:12 74 21 100 Room Air 09/19/24 08:09 78 24 09/19/24 07:00 68 17 100 09/19/24 06:54 67 16 98 09/19/24 06:42 26 H 97 09/19/24 06:30 90 22 09/19/24 06:15 71 20 95 09/19/24 06:00 75 16 96 09/19/24 06:00 115/54 L 09/19/24 06:00 115/54 L 09/19/24 06:00 115/54 L 09/19/24 06:00 115/54 L 09/19/24 06:00 115/54 L 09/19/24 06:00 115/54 L 09/19/24 06:00 115/54 L 09/19/24 06:00 115/54 L 09/19/24 06:00 115/54 L 09/19/24 06:00 115/54 L 09/19/24 06:00 115/54 L 09/19/24 06:00 115/54 L 09/19/24 06:00 115/54 L 09/19/24 06:00 115/54 L 09/19/24 06:00 115/54 L 09/19/24 06:00 115/54 L 09/19/24 06:00 115/54 L 09/19/24 06:00 115/54 L 09/19/24 06:00 115/54 L 09/19/24 05:24 77 14 97 09/19/24 05:18 65 13 98 09/19/24 05:03 70 15 98 09/19/24 05:00 123/55 L 09/19/24 05:00 123/55 L 09/19/24 05:00 123/55 L 09/19/24 05:00 123/55 L 09/19/24 05:00 123/55 L 09/19/24 05:00 123/55 L 09/19/24 05:00 123/55 L 09/19/24 05:00 123/55 L 09/19/24 05:00 123/55 L 09/19/24 05:00 123/55 L 09/19/24 05:00 123/55 L 09/19/24 04:57 65 12 97 09/19/24 04:54 66 12 96 09/19/24 04:42 77 14 96 09/19/24 04:24 68 17 97 09/19/24 04:09 65 18 87 L 09/19/24 04:00 129/56 L 09/19/24 04:00 129/56 L 09/19/24 04:00 129/56 L 09/19/24 04:00 129/56 L 09/19/24 04:00 129/56 L 09/19/24 04:00 129/56 L 09/19/24 04:00 129/56 L 09/19/24 04:00 129/56 L 09/19/24 04:00 129/56 L 09/19/24 04:00 129/56 L 09/19/24 04:00 129/56 L 09/19/24 04:00 129/56 L 09/19/24 04:00 129/56 L 09/19/24 04:00 129/56 L 09/19/24 04:00 129/56 L 09/19/24 04:00 129/56 L 09/19/24 04:00 129/56 L 09/19/24 04:00 129/56 L 09/19/24 04:00 36.5 C 09/19/24 03:24 71 15 98 09/19/24 03:21 69 15 97 09/19/24 03:18 66 12 99 09/19/24 03:03 72 16 99 09/19/24 03:00 129/62 09/19/24 03:00 129/62 09/19/24 03:00 129/62 09/19/24 03:00 129/62 09/19/24 03:00 129/62 09/19/24 03:00 129/62 09/19/24 03:00 129/62 09/19/24 03:00 129/62 09/19/24 03:00 129/62 09/19/24 01:15 70 12 97 09/19/24 01:06 65 11 L 98 09/19/24 01:00 148/51 H 09/19/24 01:00 148/51 H 09/19/24 01:00 148/51 H 09/19/24 01:00 148/51 H 09/19/24 01:00 148/51 H 09/19/24 01:00 148/51 H 09/19/24 00:57 60 9 L 96 09/19/24 00:51 61 10 L 98 09/19/24 00:45 62 13 98
--- NOTE | 2024-09-19 12:36 | Discharge Summary ---
Date of Service September 19, 2024 Admission HPI Per Admitting Provider Name: SUSANNAH MACK Patient Number: [id number] : 1945 Date of Service: 09/09/2024 Chief Complaint: _New patient consultation for carotid stenosis HPI: _Ms. Mack is an elderly female who presents to Dr. Peralta's vascular surgery clinic today as new patient in consultation for carotid stenosis. Patient states that she underwent a right shoulder surgery in August 2023, and feels that she is been getting weaker and weaker since that time. Due to concerns for a possible stroke, she underwent evaluation a few months later and eventually saw a neurologist locally who was concerned that she may have had a right hemispheric CVA in the remote past. He sent her for a CTA of the neck which was done at [facility] and this demonstrated carotid stenosis. Patient states that she had been feeling like her left arm and leg were more weak than her right, but she is now using a rolling walker for ambulation, and just his generally weaker than she used to be. She denies any symptoms of amaurosis, definitive sudden onset unilateral weakness or tingling, facial droop, sudden onset confusion, difficulty speaking or swallowing. Additionally she denies headache, fever, chest pain, shortness of breath, bone pain, nausea, vomiting, rest pain, claudication, nonhealing wounds or ulcers. She does admit some bilateral lower extremity edema which is chronic. CTA of the neck performed at [facility] in July 2024 demonstrates a 80 to 90% stenosis of the left ICA and about 60% stenosis of the right. Current Home Meds: (Last Updated 09/09 15:47) aspirin (aspirin 81 mg oral delayed release tablet) 81 mg PO Daily carbidopa-levodopa (carbidopa-levodopa 25 mg-100 mg oral tablet) TAKE 1/2 (ONE-HALF) TABLET BY MOUTH THREE TIMES DAILY cholecalciferol (D3 50 mcg (2000 intl units) oral capsule) clopidogrel (Plavix 75 mg oral tablet) 75 mg PO Daily pravastatin (pravastatin 10 mg oral tablet) TAKE 1 TABLET BY MOUTH ONCE DAILY Allergies and Sensitivities: NKA Past Medical History: Problems: Bilateral carotid artery stenosis CVA Hypercholesterolemia Raynaud's disease Surgical history: Positive for right shoulder repair, cholecystectomy, bilateral total knee arthroplasty, left hip arthroplasty. Social history: Patient does not smoke or drink alcohol. She does not use illicit drugs. She is lives with her who is her primary semiconductor processing technician. Family history: Essentially negative OBJECTIVE Vitals: Last Updated 09/09/24 14:46 Date Temp BP Location Pulse RR SpO2 Pain 09/09/24 124/60 Right Arm 09/09/24 122/64 Left Arm 70 18 99 0 Vital Signs are the last 3 documented. No Orthostatic Data Available Height and Weight: Last Updated 09/09/24 14:44 Date BMI Wt(kg) Wt(lb) Method Ht(cm) (ft-in) Method 09/09/24 72.4 159 Standing Scale Heights and Weights are the last 3 documented. Physical Exam Constitutional: In general patient is a mildly chronic ill-appearing elderly female in no distress. She is alert and oriented without any focal deficits other than 4-5 strength on the left versus 5 out of 5 on the right, although does move and process rather slowly. Her carotids not demonstrate a bruit. Her heart is regular, lungs are decreased but clear. Abdomen soft nontender with erected bowel sounds in 4 quadrants. Brachial radial pulses are +3. Femoral pulse are +3. Lower extremities pulses are +2 DP +1 PT. She has brisk cap refill and no sign of distal ischemia. She does have +2 pitting edema of the lower legs. ASSESSMENT: _ PLAN: _ 1 ) _carotid stenosis Patient does have a severe left ICA stenosis of 80 to 90%, from which she is asymptomatic. Her right hemispheric CVA is in the remote past, and only has 60% stenosis of the right ICA. Due to the severity of the left ICA stenosis, and her significantly increased risk of CVA there, we recommend that she undergo surgical intervention. Carotid endarterectomy versus TCAR were discussed at length with the patient and her present. Patient expresses a desire to undergo left TCAR. The procedure benefits and alternatives were discussed with the patient by myself. The risks of the surgery including but not limited to bleeding, infection, CVA, heart attack, blood clots, nerve damage, , were discussed at with the patient by myself at Dr. Peralta's request. Patient expressed understanding and agreement to proceed. Patient is currently taking 81 mg aspirin and statin medication which she has been taking chronically. We will add clopidogrel for DAPT required for stent placement. Patient and her were advised to call if they have any further questions or concerns. Otherwise this per procedure will occur in the next few weeks at the patient's convenience. Thank you for letting us participate in the care of this patient. I have personally [id number]__ minutes performing [id number] and ukr-ofem-ge-face activities on this date of service.Time does not include separately reported services. Activities Include: _x_ review of the medical record x__ obtaining a history _x_ physical exam/evaluation __ review labs _x_ review radiology reports _x_ counseling/educating patient/family/caregiver __ discussion/referral to other healthcare professional _x_ documenting care in the medical record __ independent interpretation of results _x_ communication of results to patient/family/caregiver _x_ coordination of care Signature Line Electronic Signature on File CC: Junior Reyes MD [address] [facility] [address] [facility] [address] * CC: CALL[facility] [address] [facility] [address] * Electronically Reviewed/Signed by: Berenice Lake PA-C Author Signature Dt/Tm:09/09/2024 04:55 PM [facility] [place], [address] [place] [address] LM Result Type: HVI Outpt Note Date of Service: September 09, 2024 16:40 EDT Authorization Status: Final Author or Import Date: RAMIRO Lake Lynn on September 09, 2024 16:55 EDT Verified By: RAMIRO [place] on September 09, 2024 16:55 EDT Encounter info: [id number], [facility], Clinic, 09/09/2024 - 09/09/2024 Admission Exam Per Admitting Provider Constitutional: In general patient is a mildly chronic ill-appearing elderly female in no distress. She is alert and oriented without any focal deficits other than 4-5 strength on the left versus 5 out of 5 on the right, although does move and process rather slowly. Her carotids not demonstrate a bruit. Her heart is regular, lungs are decreased but clear. Abdomen soft nontender with erected bowel sounds in 4 quadrants. Brachial radial pulses are +3. Femoral pulse are +3. Lower extremities pulses are +2 DP +1 PT. She has brisk cap refill and no sign of distal ischemia. She does have +2 pitting edema of the lower legs. Principal Diagnosis Left internal carotid artery stenosis Discharge Exam Constitutional WD/WN, vitals as above Neck trachea midline Respiratory normal respiratory effort; no respiratory distress Cardiovascular Rate/Rhythm: regular rate and regular rhythm Skin + incision (dry and clean) Neurologic CN's II-XI intact bilaterally and moves all extremities Psychiatric A+Ox3, euthymic affect Discharge Data Allergies Allergy/AdvReac Type Severity Reaction Status Date / Time No Known Drug Allergies Allergy Unknown Verified 09/18/24 08:20 Consultations 09/18/24 14:31 Consult Home Health Registered Nurse Routine Procedures Performed Operation Date: 09/18/24 09:50 Actual Procedures p Left Transcarotid Artery Revascularization with Ultrasound Right Common Femoral Vein(Left) - Charles Peralta MD Ordered Studies 09/18/24 07:42 EV angio carotid cerv LT Routine Hospital Course (1) S/P vascular surgery: Patient doing extremely well. Will D\C today. Total Time Total Time Spent Total Time Spent (In Minutes): x Discharge Plan Discharge Items Patient Disposition: Home - Self-Care Reason For Visit: Left Internal Carotid Artery Stenosis Discharge Diagnosis: Left internal carotid artery stenosis Activity: Per Instructions section Non-emergency contact: Surgeon Call non-emergency contact if: your temperature is above 101.5, your wound has increased redness, your wound has increased drainage and your wound pain has increased Follow-up/Referrals: Wilberto Grewal PA-C [Primary Care Provider] - Diet: Heart Healthy Add Attending Provider Instructions: SPECIAL CARE INSTRUCTIONS: Diet: * You may return to previous diet. Medications: * Continue to take Aspirin, statin, and brilinta as directed. Incision Care: * You may shower, but do not rub incision. You may let the warm soapy water run over it. Be sure to dry the incision well after bathing. * Do not shave directly over the incision until it is healed. * DO NOT IMMERSE THE INCISION IN A TUB/POOL/etc. UNTIL HEALED. Restrictions: * Do not drive for at least one week or if you are still taking any narcotic pain medication. * Do not lift anything heavier than a gallon of milk for one week after going home. Possible Complications: * Numbness - It is normal to have some numbness around the incision. Numbness can extend beyond the incision to areas of the neck, ear and face. The numbness is due to bruising of nerves during the surgery and will gradually improve over a period of months. * Hoarseness/Difficulty Speaking and Swallowing - The bruising of nerves in the neck can also cause a hoarse voice, difficulty speaking or swallowing. This may improve over time, HOWEVER, if it continues for more than a few days please contact our office ([phone]). * Excessive Swelling - There will be some swelling immediately after surgery which usually resolves within one week. If you notice that the swelling is getting worse, notify your surgeon ([phone]). * Drainage/Bleeding - If there is any drainage or bleeding, it should be a very small amount (less than a teaspoon per day). If you have excessive bleeding or drainage from the incision, call your surgeon ([phone]) right away. ACTIVATION OF EMERGENCY MEDICAL SYSTEM: Call 911, immediately, if you experience any of the following: Warning Signs and Symptoms of Stroke: * Sudden numbness or weakness of the face, arm or leg, especially on one side of the body * Sudden confusion, trouble speaking or understanding * Sudden trouble seeing in one or both eyes * Sudden trouble walking, dizziness, loss of balance or coordination * Sudden severe headache with no cause Do not delay calling 911 if you experience any warning signs or symptoms of a stroke. Delay in seeking medical attention may affect what treatments can be given to you. Risk Factors for Stroke: You can reduce your chances of stroke by working with your medical provider to adopt a healthy lifestyle. Some specific ways to lower your chance of stroke are: * If you are a smoker, now is the time to stop smoking cigarettes * If you are diabetic, improve the control of your blood sugars * Avoid excessive amounts of alcohol * Control high blood pressure * Lose weight if you are overweight * Be sure to lead an active lifestyle * Eat a healthy diet low in salt, cholesterol and fat You should know about other risk factors for stroke that you are unable to control. These include: * Age 55 years or older * Male gender * Certain racial groups: , or / * Family History of Stroke, Mini stroke or Heart Attack * Sickle Cell Disease You will be receiving a call from the Vascular Surgery Nurse after you are discharged. FOLLOW UP VISIT: It is important for you to keep your follow up appointments with your medical provider. Keep any scheduled doctor appointments. Call [phone] to schedule a follow up appointment if one not already scheduled. Pending Studies at Discharge: No Stand-Alone Forms: My [facility] [employer], Smoking Cessation Medications and DC Order Prescriptions: Continued pravastatin 10 mg tablet 10 mg PO QPM carbidopa-levodopa 25-100 mg tablet 0.5 tab PO TID Qty: 90 2RF cholecalciferol (vitamin D3) [Vitamin D3] 50 mcg (2,000 unit) Capsule 50 mcg PO QAM aspirin [Adult Aspirin Regimen] 81 mg tablet,delayed release (DR/EC) 81 mg PO QAM Brilinta 90 mg Tablet 90 mg PO BID Discharge Orders: Discharge Order (Routine); Ordered 09/19/24 Ordered By: Charles Peralta Admission Data Admit Date/Time: 09/18/24 10:07 Attending Provider: Charles Peralta Admit Provider: Charles Peralta Primary Care Provider: Wilberto Grewal Other Providers: Junior Matias; Vladimir Mcmanus; Oziel Dodge; Александр Albert; Jesrey Garcia; Ag Hernandez; Annamarie Leyva
[2024-09-19 13:08] VITALS: BP 127/62; PULSE 76
== END 2024-09-19 14:24 | disposition home or self-care (01) | DRG 36 ==
LOC: ASU 07:49 → 1E 10:07
PROC: EV.TCAR (2024-09-18 09:50)